=== PATIENT | female | born 1945 | race Caucasian/White ===

== ENCOUNTER → 2018-10-20 | Outpatient (CLI) | payer OTHER | END | disposition home or self-care (01) | LOC: RAH 14:22 | PROVIDERS: ATTEND Internal Medicine Cardiovascular Disease | DX: Z13.6 Encounter for screening for cardiovascular disorders (principal) | CPT/HCPCS: 75571 ==

== ENCOUNTER 2023-09-30 12:08 | Day surgery (SDC) | payer MEDICARE, OTHER ==
[~2023-09-30] VITALS: Ht 160 cm; Wt 62.1 kg
[2023-09-30] VITALS (17 sets, daily range): BP systolic 108–152; BP diastolic 65–81; PULSE 64–86; RESP 11–20
[2023-09-30] MEDS ORDERED: IOHEXOL-350 50ML VIAL IV ONE (16:39)
[2023-09-30] MEDS ORDERED: LIDOCAINE PF 100MG/5ML (2%) SYRINGE 5ML ONE (17:14)
[2023-09-30] MEDS ORDERED: SUCCINYLCHOLINE CHLORIDE 20 MG/ML 10 ML VIAL ONE (17:14)
[2023-09-30] MEDS ORDERED: PROPOFOL 10 MG/ML 20ML VIAL IV ONE (17:14)
[2023-09-30] MEDS ORDERED: KETAMINE 50MG/ML SYRINGE 50 MG/ML DISP.SYRIN ONE (17:15)
[2023-09-30] MEDS ORDERED: FENTANYL CITRATE PF 50 MCG/1 ML 2ML VIAL ONE (17:16)
[2023-09-30] MEDS: INDOMETHACIN 100 MG SUPP.RECT RC ONE (17:30)
[2023-09-30] MEDS ORDERED: GLUCAGON 1MG KIT 1 MG ML ONE (17:35)
== END 2023-09-30 20:15 | disposition home or self-care (01) ==
LOC: EDH 12:08 → EDHIP 12:08 → UNDOADMIN 12:08 → DAH 12:09 → UNDOADMIN 14:29 → EDHIP 14:29 → EDSTATUS 17:09 → DAH 20:15 → UNDODISIN 23:52 → DAH 10-02 12:10 → EDH 10-02 17:09
PROVIDERS: ATTEND Internal Medicine
DX: K83.1 Obstruction of bile duct (principal); R17 Unspecified jaundice; K83.09 Other cholangitis; R74.8 Abnormal levels of other serum enzymes; I10 Essential (primary) hypertension; E78.5 Hyperlipidemia, unspecified; E11.65 Type 2 diabetes mellitus with hyperglycemia; E11.649 Type 2 diabetes mellitus with hypoglycemia without coma; E03.9 Hypothyroidism, unspecified; D64.9 Anemia, unspecified; Z98.890 Other specified postprocedural states; Z86.73 Personal history of transient ischemic attack (TIA), and cerebral infarction without residual deficits; Z86.718 Personal history of other venous thrombosis and embolism; Z79.01 Long term (current) use of anticoagulants; Z88.8 Allergy status to other drugs, medicaments and biological substances
CPT/HCPCS: 43274; 88305 ×2; 88112; 74328; 43261; J3010; J0330; J1610; J2001; J2704; Q9967; J3490; A4649; A4620; A4215; A4223; A4657; A7002; A4222; J7030; C1769; 74330; G0378